=== PATIENT | female | born 1995 | race Caucasian/White ===

== ENCOUNTER → 2020-10-15 | Outpatient (CLI) | payer OTHER | LOC: DIA.ED | DX: O24.419 Gestational diabetes mellitus in pregnancy, unspecified control (principal) | CPT/HCPCS: G0108 ==

== ENCOUNTER → 2020-11-02 | Outpatient (CLI) | payer OTHER | LOC: DIA.ED | DX: O24.419 Gestational diabetes mellitus in pregnancy, unspecified control (principal) | CPT/HCPCS: G0108 ==

== ENCOUNTER 2020-12-22 06:48 | Inpatient (IN) | payer OTHER ==
[~2020-12-22] VITALS: Ht 160 cm; Wt 85.9 kg
[2020-12-22 19:30] VITALS: BP 129/90; PULSE 100; TEMP 97.9
[2020-12-22] MEDS ORDERED: TUMS500 MG (19:34)
[2020-12-22] MEDS ORDERED: BONJESTA ER 201 EACH PO (19:34)
[2020-12-22] MEDS ORDERED: PRENATAL TABLET PO (19:35)
[2020-12-22 20:00] VITALS: BP 135/88; PULSE 89
--- NOTE | 2020-12-22 20:12 | NUR ---
1854 - Pt presents ambulatory to unit with fiance for scheduled cytotec induction. Pt changes into gown, EFM explained and placed. Pt denies leaking of fluid, vaginal bleeding, and contractions, reports good movement. VS taken, assessments complete, consents discussed and signed. IV started in LF, labs drawn. Pt denies further needs/questions at this time. 0 - FHR minimal variability with subtle late decelerations. LR bolus started. 1939 - FHR improved to moderate variability with accelerations and no further decelerations noted. Baseline FHR 160. 1951 - Pt repositioned WR.
[2020-12-22 20:30] VITALS: BP 140/95; PULSE 98
[2020-12-22 20:58] LABS: BASO % 0.3 % (0.0-2.0); EOS # 0.2 (0.0-0.7); EOS % 1.2 % (0-4.0); GRAN # 8.7 (1.4-6.5); GRAN % 69.3 % (42.2-75.2); HEMOGLOBIN 11.1 g/dl (12.5-16.0); LYMPH # 2.8 (1.2-3.4); LYMPH % 22.5 % (20.0-51.0); MEAN CELL VOLUME 85 fl (80.0-100.0); MEAN CORPUSCULAR HEMOGLOBIN 28 pg (27.0-31.0); MEAN CORPUSCULAR HGB CONC 33 g/dl (33.0-37.0); MEAN PLATELET VOLUME 11.2 fl (7.4-10.4); MONO # 0.8 (0.1-0.6); MONO % 6.3 % (1.7-9.3); PLATELET COUNT 345 K/mm3 (130-400); RED BLOOD COUNT 3.93 M/mm3 (4.10-5.30)
[2020-12-22 21:00] VITALS: BP 120/77; PULSE 93
[2020-12-22 21:03] LABS: HEMATOCRIT 33.4 % (37.0-47.0)
[2020-12-23 23:45] VITALS: BP 127/64; PULSE 80; TEMP 97.6
[2020-12-24 03:35] VITALS: BP 124/83; PULSE 85; TEMP 98
[2020-12-24 07:00] VITALS: BP 118/76; PULSE 85; TEMP 97.7
--- NOTE | 2020-12-24 09:49 | NUR ---
Initial visit; Mom thanked Director Of Media for offering congratulations and God's blessings for the of her daughter. Director Of Media thanked mom for choosing [facility].
[2020-12-24 16:58] VITALS: BP 121/83; PULSE 91; TEMP 98.3
[2020-12-24 19:30] VITALS: BP 116/68; PULSE 83; TEMP 98.1
[2020-12-25 03:50] VITALS: BP 123/85; PULSE 95; TEMP 98.2
[2020-12-25 08:15] VITALS: BP 118/82; PULSE 84; TEMP 98.8
[2020-12-25] MEDS ORDERED: IBU800 M1 PO (08:19)
[2020-12-25] MEDS ORDERED: PERCOCET 325 MG1 TA2 PO (08:24)
--- NOTE | 2020-12-25 11:25 | NUR ---
Patient given discharge instructions, denies questions. Leaves ambulatory with spouse escorte dby staff.
== END 2020-12-25 11:25 | disposition home or self-care (01) | DRG 807 ==
LOC: OB 06:48 → LDR 06:48 → OB 09:52
PROVIDERS: ADMIT Student in an Organized Health Care Education/Training Program
PROC: 10E0XZZ Delivery of Products of Conception, External Approach (ICD-10-PCS; principal; 2020-12-23)
PROC: 0KQM0ZZ Repair Perineum Muscle, Open Approach (ICD-10-PCS; 2020-12-23)
PROC: 3E0P7VZ Introduction of Hormone into Female Reproductive, Via Natural or Artificial Opening (ICD-10-PCS; 2020-12-23)
PROC: 3E033VJ Introduction of Other Hormone into Peripheral Vein, Percutaneous Approach (ICD-10-PCS; 2020-12-23)
DX: O24.429 Gestational diabetes mellitus in childbirth, unspecified control (principal); Z37.0 Single live birth; Z3A.40 40 weeks gestation of pregnancy; O70.1 Second degree perineal laceration during delivery; O99.344 Other mental disorders complicating childbirth; F41.8 Other specified anxiety disorders; K21.9 Gastro-esophageal reflux disease without esophagitis; O99.62 Diseases of the digestive system complicating childbirth
CPT/HCPCS: J2590; J7120

== ENCOUNTER → 2020-12-22 | Outpatient (CLI) | payer OTHER ==
[~2020-12-22] MED LIST: BONJESTA ER 201 EACH PO; IBU800 M1 PO; PERCOCET 325 MG1 TA2 PO; PRENATAL TABLET PO; TUMS500 MG
== END ==
LOC: ZCOL.LAB 12-18 09:53
DX: Z20.822 Contact with and (suspected) exposure to COVID-19 (principal)